=== PATIENT | female | born 1940 | race Caucasian/White ===

== ENCOUNTER 2023-07-13 09:30 | Day surgery (SDC) | payer MEDICARE, BC, OTHER ==
[~2023-07-13] VITALS: Ht 167.6 cm; Wt 56.1 kg
[~2023-07-13 09:30] MED LIST: ALAW0.02 OU; BIOT1CAP2 PO; CALC600T60 PO; CURC500C PO; ESTR1CRE VA; FAMO20TA PO; NS 1,000 ML IV ONE; OMEP40CA4 PO; PROBCAP14 PO; PROL60SO SC; SYNT75TA PO; SYST1SOL OU; TACROLIMUS TOP; VITMTA PO
[2023-07-13] MEDS ORDERED: propofoL 200 MG/20 ML VIAL As Ordered ONE (10:22)
[2023-07-13] MEDS ORDERED: GLYCOPYRROLATE INJ 0.2 MG/ML 2 ML VIAL As Ordered ONE (10:22)
[2023-07-13] MEDS ORDERED: LIDOCAINE 2% 100MG/5ML SDV (FOR ANES.) As Ordered ONE (10:22)
[2023-07-13 12:33] VITALS: BP 122/76; TEMP 97.5; O2SAT 97
== END 2023-07-13 12:38 | disposition home or self-care (01) ==
LOC: M OPP 09:30
PROVIDERS: ATTEND Internal Medicine Gastroenterology
DX: Z12.11 Encounter for screening for malignant neoplasm of colon (principal); Z80.0 Family history of malignant neoplasm of digestive organs; K57.30 Diverticulosis of large intestine without perforation or abscess without bleeding; K64.8 Other hemorrhoids; K31.7 Polyp of stomach and duodenum; K44.9 Diaphragmatic hernia without obstruction or gangrene; R12 Heartburn; Z79.83 Long term (current) use of bisphosphonates; Z79.890 Hormone replacement therapy; Z79.899 Other long term (current) drug therapy; Z88.2 Allergy status to sulfonamides
CPT/HCPCS: 43251; 88305; G0105